=== PATIENT | male | born 1995 | race Caucasian/White ===

== ENCOUNTER 2017-01-19 01:09 | Emergency (ER) | payer OTHER ==
[~2017-01-19] VITALS: Ht 188 cm; Wt 127.0 kg
[~2017-01-19 01:09] MED LIST: CEPHALEXIN500 MG PO; NON-ASPIRIN EX500 M1 PO
[2017-01-19] MEDS ORDERED: HYDROXYZINE HCL25 MG PO (01:48)
== END 2017-01-19 02:00 | disposition home or self-care (01) ==
LOC: ED 01:09
DX: L55.0 Sunburn of first degree (principal)
CPT/HCPCS: 96372; 99283; J1200

== ENCOUNTER 2017-02-20 22:46 | Emergency (ER) | payer OTHER ==
[~2017-02-20] VITALS: Ht 188 cm; Wt 120.2 kg
[~2017-02-20 22:46] MED LIST changes: +HYDROXYZINE HCL25 MG PO
== END 2017-02-20 23:33 | disposition home or self-care (01) ==
LOC: ED 22:46
DX: M54.6 Pain in thoracic spine (principal); F17.200 Nicotine dependence, unspecified, uncomplicated; X50.1XXA Overexertion from prolonged static or awkward postures, initial encounter
CPT/HCPCS: 99282

== ENCOUNTER 2017-10-02 03:38 | Emergency (ER) | payer SELFPAY ==
[~2017-10-02] VITALS: Ht 188 cm; Wt 127.0 kg
[2017-10-02] MEDS ORDERED: DICLOFENAC SODI75 MG PO (04:22)
[2017-10-02] MEDS ORDERED: CYCLOBENZAPRINE10 MG PO (04:22)
== END 2017-10-02 04:37 | disposition home or self-care (01) ==
LOC: ED 03:38
DX: M54.5 Low back pain (principal); Z87.891 Personal history of nicotine dependence
CPT/HCPCS: 99283

== ENCOUNTER 2017-12-24 07:57 | Emergency (ER) | payer SELFPAY ==
[~2017-12-24] VITALS: Ht 188 cm; Wt 127.0 kg
[~2017-12-24 07:57] MED LIST changes: +CYCLOBENZAPRINE10 MG PO; +DICLOFENAC SODI75 MG PO
== END 2017-12-24 08:11 | disposition home or self-care (01) ==
LOC: ED 07:57
DX: M79.661 Pain in right lower leg (principal)

== ENCOUNTER 2018-10-30 16:39 | Emergency (ER) | payer SELFPAY ==
[~2018-10-30] VITALS: Ht 188 cm; Wt 127.0 kg
--- OUTSIDE RECORDS SUMMARY | ~2018-10-30 | XMS | Clinical Summary ---
Demographics + + + | Address | [address] | | | [place] [address] | + + + | Home Phone | | + + + | Preferred Language | Unknown | + + + | Marital Status | Single | + + + | Scientology Affiliation | 1013 | + + + | Race | Unknown | + + + | Ethnic Group | Unknown | + + + Author + + + | Author | [facility] | | | and [place] | + + + | Organization | [facility] | | | and [place] | + + + | Address | Unknown | + + + | Phone | Unavailable | + + + Support + + +---------+ + | Name | Relationship | Address | Phone | + + +---------+ + | None,Provided | ECON | Unknown | | + + +---------+ + Care Team Providers + +------+ + | Care Electrical Timing Device Calibrator Name | Role | Phone | + +------+ + | No, Physician | PP | Unavailable | + +------+ + Allergies [...] on file | | + + + + + + + | Job Start Date | Occupation | Industry | + + + + | Not on file | Not on file | Not on file | + + + + + + + + | Travel History | Travel Start | Travel End | + + + + + + | No recent travel history available. | + + Last Filed Vital Signs + + + + | Vital Sign | Reading | Time Taken | + + + + | Blood Pressure | 150/92 | 01/02/20181813 PDT | + + + + | Pulse | 76 | 01/02/20181813 PDT | + + + + | Temperature | 36.5 C (97.7 F) | 01/02/20181813 PDT | + + + + | Respiratory Rate | 19 | 01/02/20181813 PDT | + + + + | Oxygen Saturation | 99% | 01/02/20181813 PDT | + + + + | Inhaled Oxygen | - | - | | Concentration | | | + + + + | Weight | 131 kg (288 lb 12.8 | 01/02/2018 1814 PDT | | | oz) | | + + + + | Height | 188 cm (6' 2") | 01/01/2018 110 PDT | + + + + | Body Mass Index | 37.08 | 01/01/20181105 PDT | + + + + Plan of Treatment + + + + + | Health Maintenance | Due Date | Last Done | Comments | + + + + + | Vaccine: | | | | | Dtap/Tdap/Td (1 - | 4 | | | | Tdap) | | | | + + + + + | Vaccine: Influenza | | | | | (Season Ended) | 9 | | | + + + + + Results Not on filefrom Last 3 Months Insurance + +--------+ +--------+ +---------+--------+ | Payer | Benefi | Subscriber | Effect | Phone | Address | Type | | | t Plan | ID | steve | | | | | | / | | Dates | | | | | | Group | | | | | | + +--------+ +--------+ +---------+--------+ | WORKERS COMPENSATION | WORKME | [id number] | | | | Indemn | | | NS | | 013-Pr | | | ity | | | COMP | | esent | | | | | | OTHER | | | | | | | | WC | | | | | | + +--------+ +--------+ +---------+--------+ | GEHA | GEHA | [id number] | | [phone] | | PPO | | | PHCS | | 018-Pr | 6 | | | | | | | esent | | | | + +--------+ +--------+ +---------+--------+ + +--------+ +--------+ + + | Guarantor Name | Accoun | Relation to | Date | Phone | Billing Address | | | t Type | Patient | of | | | | | | | | | | + +--------+ +--------+ + + | Jozef Paredes | Person | Self [birth year] | [address] | | | al/Fam | | 1995 | [phone] | [place] [address] | | | mirna | | | 5 (Home) | | + +--------+ +--------+ + + | 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 For more information, please contact:[facility] [place] [address]
--- OUTSIDE RECORDS SUMMARY | ~2018-10-30 | XMS | Clinical Summary ---
Demographics + + + | Address | [address] | | | [place] [address] | + + + | Home Phone | | + + + | Preferred Language | Unknown | + + + | Marital Status | Single | + + + | Jew Affiliation | 1013 | + + + | Race | Unknown | + + + | Ethnic Group | Unknown | + + + Author + + + | Author | [facility] | | | and [place] | + + + | Organization | [facility] | | | and [place] | [...] Team Providers + +------+ + | Care Front Desk Receptionist Name | Role | Phone | + [...] +---------+--------+ | WORKERS COMPENSATION | WORKME | [id number] | | | | Indemn | | | NS | | 013-Pr | | | ity | | | COMP | | esent | | | | | | OTHER | | | | | | | | WC | | | | | | + +--------+ +--------+ +---------+--------+ | GEHA | GEHA | [id number] | | [phone] | | PPO | [...] | 1995 | [phone] | [place] [address] | | | mirna | | | 5 (Home) | | + +--------+ +--------+ + + | 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 For more information, please contact:[facility] [place] [address]
[2018-10-30] MEDS ORDERED: NORCO 5-325 TA1 EACH PO (17:57)
== END 2018-10-30 18:18 | disposition home or self-care (01) ==
LOC: ED 16:39
PROC: 2W3DX1Z Immobilization of Left Lower Arm using Splint (ICD-10-PCS; principal; 2018-10-30)
DX: S93.402A Sprain of unspecified ligament of left ankle, initial encounter (principal); S63.502A Unspecified sprain of left wrist, initial encounter; S86.912A Strain of unspecified muscle(s) and tendon(s) at lower leg level, left leg, initial encounter; W10.8XXA Fall (on) (from) other stairs and steps, initial encounter
CPT/HCPCS: 29125; 73110; 73590; 73610; 99283-25

== ENCOUNTER 2019-10-18 05:28 | Emergency (ER) | payer OTHER ==
[~2019-10-18] VITALS: Ht 188 cm; Wt 136.1 kg
[~2019-10-18 05:28] MED LIST changes: +NORCO 5-325 TA1 EACH PO
[2019-10-18] MEDS ORDERED: CYCLOBENZAPRINE10 MG PO (05:50)
[2019-10-18] MEDS ORDERED: IBUPROFEN600 MG PO (05:51)
[2019-10-18] MEDS ORDERED: ACETAMINOPHEN325 M1 PO (05:51)
== END 2019-10-18 07:06 | disposition home or self-care (01) ==
LOC: ED 05:28
DX: R19.7 Diarrhea, unspecified (principal)
CPT/HCPCS: 80053; 81001; 83690; 85025; 87177; 87209; 87493; 96360; 99284-25; J7030

== ENCOUNTER 2020-01-22 22:27 | Emergency (ER) | payer OTHER ==
[~2020-01-22] VITALS: Ht 188 cm; Wt 133.8 kg
--- OUTSIDE RECORDS SUMMARY | ~2020-01-22 | XMS | Encounter Summary ---
Demographics + + + | Address | [address] | | | [place] [address] | + + + | Home Phone | | + + + | Preferred Language | Unknown | + + + | Marital Status | Single | + + + | Islam Affiliation | 1013 | + + + | Race | Unknown | + + + | Ethnic Group | Unknown | + + + Author + + + | Author | [facility] | | | and [place] | + + + | Organization | [facility] | | | [...] Team Providers + +------+ + | Care Cook Short Order Name | Role | Phone | + [...] | 2018 | | HOSPITAL EMERGENCY | COMMUNITY NURSE [address] | knee, unspecified | | | | CENTER [address] | [place] | ligament, initial | | | | [place] | [address] | encounter (Primary | | | | [address] | | Dx) | | | | [phone] | | | +--------+ + + + [...] Care Everywhere.Strains and Spr ains, Self-Care for (Lebanese)documented in this encounter Medications at Time of [...] might be different fr om the original. [facility] Emergency Department Provider Note Name: Jozef Paredes [...] Knee Injury Method of Arrival: walk-in Treatment KOSHER BUTCHER (EMS): N/A Treatment KOSHER BUTCHER (Patient/Family): Cordova and Ibuprofen 600 mg TID HPI: History [...] reports being seen at an clinic in [facility] and started on Cordova and Ibuprofen. States these have helped but [...] PDTPt c/o's right knee injury last week. [facility] sent pt here "fo r MRI [...] R?MRN: | | | | | | [id number] | | | [id number] | | | ecurit | | | [...] | | | St. | | | [place] | | | y H. | | [...] | | | St. | | | [place] | | | y H. | | [...] | | | St. | | | [place] | | | y | | | [...]
--- OUTSIDE RECORDS SUMMARY | ~2020-01-22 | XMS | Clinical Summary ---
Demographics + + + | Address | [address] | | | [place] [address] | + + + | Home Phone | | + + + | Preferred Language | Unknown | + + + | Marital Status | Single | + + + | Sikhism Affiliation | 1013 | + + + | Race | Unknown | + + + | Ethnic Group | Unknown | + + + Author + + + | Author | [facility] | | | and [place] | + + + | Organization | [facility] | | | [...] Team Providers + +------+ + | Care Physical Instructor Name | Role | Phone | + +------+ + | No, Physician | PCP | Unavailable | + +------+ + Allergies No Known Allergies Medications + + + +---------+------+------+-------+ | Medication | Sig | Dispensed | Refills | Star | End | Statu | | | | | | t | Date | s | | | | | | Date | | | + + + +---------+------+------+-------+ | ibuprofen | Take 600 mg by mouth | | 0 | | | Activ | | (ADVIL,MOTRIN) 600 | every 6 hours as | | | | | e | | MG tablet | needed for Pain. | | | | | | + + + +---------+------+------+-------+ | | Take 1 tablet by | | 0 | | | Activ | | HYDROcodone-acetamin | mouth every 6 hours | | | | | e | | ophen (NORCO) 5-325 | as needed for Pain. | | | | | | | mg per tablet | | | | | | | + + + +---------+------+------+-------+ Active Problems No known active problems Social History + +-------+ +--------+------+ | Tobacco [...] on file | | + + + Last Filed Vital Signs + + + + + | Vital Sign | Reading | Time Taken | Comments | + + + + + | Blood Pressure | 150/92 | 01/02/2018 6:14 PM | | | | | PDT | | + + + + + | Pulse | 76 | 01/02/2018 6:14 PM | | | | | PDT | | + + + + + | Temperature | 36.5 C (97.7 F) | 01/02/2018 6:14 PM | | | | | PDT | | + + + + + | Respiratory Rate | 19 | 01/02/2018 6:14 PM | | | | | PDT | | + + + + + | Oxygen Saturation | 99% | 01/02/2018 6:14 PM | | | | | PDT | | + + + + + | Inhaled Oxygen | - | - | | | Concentration | | | | + + + + + | Weight | 131 kg (288 lb 12.8 | 01/02/2018 6:14 PM | | | | oz) | PDT | | + + + + + | Height | 188 cm (6' 2") | 01/01/2018 11:06 AM | | | | | PDT | | + + + + + | Body Mass Index | 37.08 | 01/01/2018 11:06 AM | | | | | PDT | | + + + + + Plan of Treatment + + +-------+ + | Health Maintenance | Due Date | Last | Comments | | | | Done | | + + +-------+ + | Vaccine: | | | | | Dtap/Tdap/Td (1 - | 4 | | | | Tdap) | | | | + + +-------+ + | Vaccine: Influenza | | | | | (#1) | 0 | | | + + +-------+ + Results Not on filefrom Last 3 Months Insurance + +--------+ +--------+-------+---------+--------+ | Payer | Benefi | Subscriber | Effect | Phone | Address | Type | | | t Plan | ID | steve | | | | | | / | | Dates | | | | | | Group | | | | | | + +--------+ +--------+-------+---------+--------+ | WORKERS COMPENSATION | WORKME | [id number] | | | | Indemn | | | NS | | 013-Pr | | | ity | | | COMP | | esent | | | | | | OTHER | | | | | | | | WC | | | | | | + +--------+ +--------+-------+---------+--------+ + +--------+ +--------+ + + | Guarantor Name | Accoun | Relation to | Date | Phone | Billing Address | | | t Type | Patient | of | | | | | | | | | | + +--------+ +--------+ + + | 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
--- OUTSIDE RECORDS SUMMARY | ~2020-01-22 | XMS | Encounter Summary ---
Demographics + + + | Address | [address] | | | [place] [address] | + + + | Home Phone | | + + + | Preferred Language | Unknown | + + + | Marital Status | Single | + + + | Confucianist Affiliation | 1013 | + + + | Race | Unknown | + + + | Ethnic Group | Unknown | + + + Author + + + | Author | [facility] | | | and [place] | + + + | Organization | [facility] | | | [...] Team Providers + +------+ + | Care Drug Purchaser Name | Role | Phone | + +------+ + | No, Physician | PCP | Unavailable | + +------+ + Reason for Visit + + + | Reason | Comments | + + + | Back Pain | | + + + Encounter Details +--------+ + + + + | Date | Type | Department | Care Team | Description | +--------+ + + + + | 01/02/ | Emergency | [facility] | Yue Gregg, | Back muscle spasm | | 2018 | | HOSPITAL EMERGENCY | SHRIMP PICKER [address] | (Primary Dx) | | | | CENTER [address] | [address] [place] | | | | | [place] | [address] | | | | | [address] | | | | | | [phone] | | | +--------+ + + + [...] + + + + | Height | - | - | | + + + + + | Body Mass Index | 37.08 | 01/01/2018 11:06 AM | | | | | PDT | | + + + + + documented in this encounter Discharge Instructions Instructions Yue Gregg FNP - 01/02/2018Use Flexeril at night only. Follow up with a primary for evaluation of your back spasms. AttachmentsThe following attachments cannot be sent through Care Everywhere.Back Pain, Darwin blanc (Bermudian)documented in this encounter Medications at Time of [...] documented as of this encounter ED Notes Yue Gregg FNP - 01/02/2018 7:12 PM PDTFormatting of this note might be different fr om the original. [facility] Emergency Department Provider Note Name: Jozef Jeffries Paredes Date: 01/02/2018 : 1995 Room Number: ED01 PCP: No Physician on file Medical Decision Making This 22-year-old man who is in the [employer] comes in today complaining of severe back spasms. Of note he was here yesterday with complaints of knee pain. He walks in today hold ing his knee brace that he was given yesterday. He states the knee pain is gone because irma t has all gone to his back. He states he has had back pain on and off for the last 3 years and it was exacerbated by the workout he had to do during training today. He has no acute i njury. Patient is lying on the bed grimacing and moaning in pain. He was given 60 mg of To radol IM with complete relief of pain within about 20 minutes. He was given a go pack of Fl exeril 10 mg a total of 3 tablets and advised to take it only at night as needed. He is als o advised to follow-up with his primary care to get a complete evaluation of his back to det ermine what causes him to get muscle spasms. It is noted that he has been in [facility] frequently with complaints of knee and back pain. Patient is discharged in i mproved condition. Clinical Impression and Plan Final diagnoses: Back muscle spasm ED Prescriptions None Extended ED Note CC: Chief Complaint Patient presents with Back Pain Method of Arrival: wheelchair History obtained from: Patient HPI: Jozef Paredes is a 22 y.o. 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 Diagnostics and Procedures 60 mg of Toradol IM Review of Systems Review of Systems Constitutional: Negative. HENT: Negative. Respiratory: Negative. Cardiovascular: Negative. Gastrointestinal: Negative. Genitourinary: Negative. Musculoskeletal: Positive for back pain. Spasms in his low back. Skin: Negative. Neurological: Negative. Physical Exam Pulse: 76- Resp: 19- BP: (!) 150/92 - SpO2: 99 % - Temp: 36.5 C (97.7 F) Physical Exam Constitutional: He is oriented to person, place, and time. He appears well-developed and we ll-nourished. He appears distressed. Patient groaning and gritting his teeth on arrival. HENT: Head: Normocephalic. Eyes: Pupils are equal, round, and reactive to light. Neck: Normal range of motion. Cardiovascular: Normal rate. Pulmonary/Chest: Effort normal. No respiratory distress. Musculoskeletal: Normal range of motion. Neurological: He is alert and oriented to person, place, and time. Patient has normal gait and posture. Skin: Skin is warm and dry. Past Medical, Surgical, Social, and Family History History reviewed. No pertinent past medical history. History reviewed. No pertinent surgical history. Social History Substance Use Topics Smoking status: Former Smoker Smokeless tobacco: Never Used Alcohol use Not on file Current Discharge Medication List CONTINUE these medications which have NOT CHANGED Details HYDROcodone-acetaminophen (NORCO) 5-325 mg per tablet Take 1 tablet by mouth every 6 hours as needed for Pain. ibuprofen (ADVIL,MOTRIN) 600 MG tablet Take 600 mg by mouth every 6 hours as needed for Jayna n. BRY Petersen 01/02/181916 haul, Ying Le RN - 01/02/2018 7:02 PM PDTStates concern about if pain comes back in the night, requests m uscle relaxant. WIRE BENDER notified 7:0 9 PM PDTBrothertonBrenda RN - 01/02/2018 6:14 PM PDTPt c/o's low back pain-chronic. Pt c /o's "doing drill today and my back flared up" documented in this encounter Plan of Treatment + +------+--------+ + + | Name | Type | Priori | Associated Diagnoses | Date/Time | | | | ty | | | + +------+--------+ + + | ED INFORMATION | JULIETTE | Routin | | 01/02/2018 6:06 PM | | EXCHANGE | | e | | PDT | + +------+--------+ + + documented as of this encounter Procedures + +--------+ + + + | Procedure Name | Priori | Date/Time | Associated Diagnosis | Comments | | | ty | | | | + +--------+ + + + | ED INFORMATION | Routin | 01/02/2018 | | | | EXCHANGE | e | 6:06 PM | | | | | | PDT | | | + +--------+ + + + +---+--------+ | | | | | Proced | | | ure | | | Note - | | | Irwin, | | | Lab In | | | | | | Hlseve | | | n - | | | | | | 2017 | | | 6:07 | | | PM PDT | | | | | | [...] | | | FICATI | | | ON?/ | | | | | | 8 | | | 18:05? | | | CAMPBE | | | LL, | | | GABRIE | | | L | | | R?MRN: | | | | | | [id number] | | | [id number] | | | ecurit | | | [...] | | | in | | | JULEITTE | | | for | | | [...] | | | Jc | | | 16, | | | 2018 | | | [place] | | | [place] | | | [place] | | | [place] | | | [place] | | | Emerge | | | ncy | | | Emerge | | | ncy | | | Back | | | pain, | | | troubl | | | e | | | breath | | | ing | | | Jc | | | 15, | | | 2018 | | | [place] | | | [place] | | | [place] | | | [place] | | | [place] | | | Emerge | | | ncy | | | Emerge | | | ncy | | | Knee | | | injury | | | | | | Sprain | | | of | | | unspec | | | ified | | | site | | | of | | | right | | | knee, | | | initia | | | l | | | encoun | | | ter | | | Jc 7, | | | 2018 | | | [facility] | | | y H. | | [...] | | | [facility] | [facility] | [facility] | [facility] H[facility] | | [...] | | Hospit | | | al 2 | | | [facility] | | | y | | | Hospit | | | al 4 | | | Total | | | 6 | | | Note: | | | [...] + | Diagnosis | + + | Back muscle spasm - Primary Other symptoms referable to back | + + documented in this encounter Administered Medications + + + +-------+------+------+ | Medication Order | MAR | Action | Dose | Rate | Site | | | Action | Date | | | | + + + +-------+------+------+ | cyclobenzaprine (FLEXARIL) | Dispense | 01/03/20 | 10 mg | | | | tablet (ER Prepack) 10 mg 10 mg, | to Home | 18 7:10 | | | | | Oral, 3 TIMES DAILY PRN, Muscle | | PM PDT | | | | | spasms, Starting 01/02/18 at | | | | | | | 1900, Dispense for home use., | | | | | | + + + +-------+------+------+ +---+---+ | | | +---+---+ + +-------+ +-------+---+ + | ketorolac (TORADOL) injection | Given | 01/03/20 | 60 mg | | Ventrogl | | 60 mg 60 mg, Intramuscular, | | 18 6:39 | | | uteal-Ri | | ONCE, 01/02/18 at 1900, For 1 | | PM PDT | | | ght | | dose | | | | | | + +-------+ +-------+---+ + +---+---+ | | | +---+---+ documented in this encounter
--- OUTSIDE RECORDS SUMMARY | ~2020-01-22 | XMS | Encounter Summary ---
Demographics + + + | Address | [address] | | | [place] [address] | + + + | Home Phone | | + + + | Preferred Language | Unknown | + + + | Marital Status | Single | + + + | Spiritism Affiliation | 1013 | + + + | Race | Unknown | + + + | Ethnic Group | Unknown | + + + Author + + + | Author | [facility] | | | and [place] | + + + | Organization | [facility] | | | [...] Team Providers + +------+ + | Care Linoleum Layer Apprentice Name | Role | Phone | + +------+ + PCP | Unavailable | + +------+ + Encounter Details +--------+ + + + + | Date | Type | Department | Care Team | Description | +--------+ + + + + | 10/18/ | Hospital | [facility] | Luis Alberto Boss | | | 2017 | Encounter | HOSPITAL EMERGENCY | [address] | | | | | CENTER [address] | [address] | | | | | [address] [place] | [place] [address] | | | | | [address] | [phone] | | | | | [phone] | | | +--------+ + + + + Social History + +-------+ +--------+------+ | Tobacco Use | Types | Packs/Day | Years | Date | | | | | Used | | + +-------+ +--------+------+ | Never Assessed | | | | | + +-------+ +--------+------+ + + + | Sex Assigned at | Date Recorded | | | | + + + | Not on file | | + + + documented as of this encounter Plan of Treatment Not on filedocumented as of this encounter Visit Diagnoses Not on filedocumented in this encounter"
[~2020-01-22 22:27] MED LIST changes: +ACETAMINOPHEN325 M1 PO; +IBUPROFEN600 MG PO
== END 2020-01-23 00:06 | disposition home or self-care (01) ==
LOC: ED 22:27
DX: R51 Headache (principal); Z79.899 Other long term (current) drug therapy
CPT/HCPCS: 96374; 96375; 99283-25; J1200; J1885; J2765; J7030

== ENCOUNTER 2020-03-10 11:29 | Emergency (ER) | payer OTHER ==
[~2020-03-10] VITALS: Ht 188 cm; Wt 136.1 kg
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
--- OUTSIDE RECORDS SUMMARY | ~2020-03-10 | XMS | Clinical Summary ---
Demographics + + + | Address | [address] | | | [place] [address] | + + + | Home Phone | | + + + | Preferred Language | Unknown | + + + | Marital Status | Single | + + + | Congregational Affiliation | 1013 | + + + | Race | White | + + + | Ethnic Group | Not or | + + + Author + + + | Author | [facility] | | | and [place] | + + + | Organization | [facility] | | | and [place] [...] Team Providers + +------+ + | Care Electrical Sign Wirer Helper Name | Role | Phone | + [...] +--------+-------+---------+--------+ | WORKERS COMPENSATION | WORKME | [id number] | | | | Indemn | | [...] Comp | | 1994 | [id number] | [place] [address] | | | | | | 5 (Home) | | + +--------+ +--------+ + + | Jozef Paredes | Person | Self | [birth year] | [address] | | | [address]Fam | | 1994 [address] | | | mirna | | | 5 (Home) | [place], [place] | | | | | | | [address] | + +--------+ +--------+ + + Advance Directives + + + + + | Type | Date Recorded | Patient | Explanation | | | | Director Information | | + + + + + | Power of | | | | | Manager Ccu | | | | + + + + + | Advance | 01/01/2018 11:34 | | | | Directive | AM | | | + + + + +
--- OUTSIDE RECORDS SUMMARY | ~2020-03-10 | XMS | Encounter Summary ---
Demographics + + + | Address | [address] | | | [place] [address] | + + + | Home Phone | | + + + | Preferred Language | Unknown | + + + | Marital Status | Single | + + + | Shinto Affiliation | 1013 | + + + | Race | White | + + + | Ethnic Group | Not or | + + + Author + + + | Author | [facility] | | | and [place] | + + + | Organization | [facility] | | | and [place] | [...] Team Providers + +------+ + | Care Terrazzo Layer Helper Name | Role | Phone | [...] + | 01/02/ | Emergency | [facility] | Yue Gregg, | Back muscle spasm | | 2018 | | HOSPITAL EMERGENCY | 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 Follow up with a primary for evaluation of your back spasms. AttachmentsThe following attachments cannot be sent through Care Everywhere.Back Pain, Darwin blanc (Sinhala)documented in this encounter Medications at Time of [...] might be different fr om the original. 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 Diagnostics and Procedures 60 mg of [...] in the night, requests m uscle relaxant. RANGE EXAMINER notified 7:0 9 PM PDTBrothertonBrenda RN - [...] R?MRN: | | | | | | [id number] | | | [id number] | | | ecurit | | | [...] | | | St. | | | [place] | | | y H. | | [...] | | | St. | | | [place] | | | y H. | | [...] | | | St. | | | [place] | | | y | | | [...] | | | ? | | | 2017 | | | [facility] | | | [...]
--- OUTSIDE RECORDS SUMMARY | ~2020-03-10 | XMS | Encounter Summary ---
Demographics + + + | Address | [address] | | | [place] [address] | + + + | Home Phone | | + + + | Preferred Language | Unknown | + + + | Marital Status | Single | + + + | Hindu Affiliation | 1013 | + + + | Race | White | + + + | Ethnic Group | Not or | + + + Author + + + | Author | [facility] | | | and [place] | + + + | Organization | [facility] | | | and [place] | [...] Team Providers + +------+ + | Care Dray Driver Name | Role | Phone | + [...] | [address] [place] | [place] [address] | | | | | [address] | [phone] | | | | | [phone] | | | +--------+ + + + [...]
== END 2020-03-10 12:18 | disposition home or self-care (01) ==
LOC: ED 11:29
DX: M79.672 Pain in left foot (principal)

== ENCOUNTER 2021-03-26 18:33 | Emergency (ER) | payer OTHER ==
[~2021-03-26] VITALS: Ht 188 cm; Wt 127.9 kg
[2021-03-26] MEDS ORDERED: CLINDAMYCIN HC300 MG PO (20:14)
--- NOTE | 2021-03-27 13:24 | EKG ---
[facility] [address] [facility] [place], [place] [address] Signed Sinus tachycardia Inferior infarct , age undetermined Abnormal ECG No previous ECGs available Confirmed by LAKIA MCQUEEN MD ([id number]) on 03/27/2021 1:24:18 PM Electronically Signed By: LAKIA MCQUEEN MD 03/27/21 1324 PATIENT NAME: MANPREET MEDINA Electrocardiogram DATE OF : [birth year] PHYSICIAN: LAKIA MCQUEEN MD REPORT #: [id number] REPORT IS CONFIDENTIAL AND NOT TO BE RELEASED WITHOUT AUTHORIZATION
== END 2021-03-26 21:52 | disposition home or self-care (01) ==
LOC: ED 18:33
DX: U07.1 COVID-19 (principal)
CPT/HCPCS: 71045; 93005; 93010; 99284-25; C9803; U0003

== ENCOUNTER 2021-05-17 19:59 | Emergency (ER) | payer OTHER ==
[~2021-05-17] VITALS: Ht 188 cm; Wt 131.0 kg
[~2021-05-17 19:59] MED LIST changes: +CLINDAMYCIN HC300 MG PO
[2021-05-17] MEDS ORDERED: MAGNESIUM100 MG PO (21:28)
[2021-05-17] MEDS ORDERED: CYCLOBENZAPRINE10 MG PO (21:28)
[2021-05-17] MEDS ORDERED: IMITREX25 MG PO (21:29)
== END 2021-05-18 00:15 | disposition home or self-care (01) ==
LOC: ED 19:59
DX: S83.91XA Sprain of unspecified site of right knee, initial encounter (principal); X50.1XXA Overexertion from prolonged static or awkward postures, initial encounter; Z79.899 Other long term (current) drug therapy
CPT/HCPCS: 73560; 99283-25

== ENCOUNTER 2021-10-15 07:14 | Emergency (ER) | payer OTHER ==
[~2021-10-15] VITALS: Ht 188 cm; Wt 131.0 kg
[~2021-10-15 07:14] MED LIST changes: +IMITREX25 MG PO; +MAGNESIUM100 MG PO
--- OUTSIDE RECORDS SUMMARY | 2021-10-15 07:16 | XMS ---
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 Luiz has no Care Guidelines for this patient. Mikki VISIT COUNT (12 MO.) 3 [facility] TOTAL 3 NOTE: Visits indicate total known visits. 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
[2021-10-15] MEDS ORDERED: ONDANSETRON ODT4 MG PO (10:48)
== END 2021-10-15 11:05 | disposition home or self-care (01) ==
LOC: ED 07:14
DX: R19.7 Diarrhea, unspecified (principal); Z79.899 Other long term (current) drug therapy
CPT/HCPCS: 36415; 80053; 85025; 96374; 99284-25; J7030

== ENCOUNTER 2021-11-18 13:59 | Emergency (ER) | payer OTHER ==
[~2021-11-18] VITALS: Ht 188 cm; Wt 115.1 kg
[~2021-11-18 13:59] MED LIST changes: +ONDANSETRON ODT4 MG PO
== END 2021-11-18 15:12 | disposition home or self-care (01) ==
LOC: ED 13:59
DX: S46.912A Strain of unspecified muscle, fascia and tendon at shoulder and upper arm level, left arm, initial encounter (principal); X58.XXXA Exposure to other specified factors, initial encounter; Y99.0 Civilian activity done for income or pay; Z79.899 Other long term (current) drug therapy
CPT/HCPCS: 99283

== ENCOUNTER 2021-11-23 16:05 | Emergency (ER) | payer OTHER ==
[~2021-11-23] VITALS: Ht 188 cm; Wt 115.1 kg
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
== END 2021-11-23 17:25 | disposition home or self-care (01) ==
LOC: ED 16:05
DX: S43.402A Unspecified sprain of left shoulder joint, initial encounter (principal); S44.92XA Injury of unspecified nerve at shoulder and upper arm level, left arm, initial encounter; Z79.899 Other long term (current) drug therapy; X58.XXXA Exposure to other specified factors, initial encounter; Y99.0 Civilian activity done for income or pay
CPT/HCPCS: 73030; 99283-25

== ENCOUNTER 2024-07-06 08:10 | Emergency (ER) | payer OTHER ==
[~2024-07-06] VITALS: Ht 188 cm; Wt 122.0 kg
[2024-07-06] MEDS ORDERED: QSYMIA 3.75 MG1 EACH PO (08:23)
[2024-07-06] MEDS ORDERED: HYDROmorphone HCL 1 MG/ML SYR IV PRN (08:30)
[2024-07-06 08:31] LABS: BASOPHILS 0.4 % (0-2); EOSINOPHILS 1.1 % (0-6); HEMATOCRIT 39.1 % (35.0-50.0); HEMOGLOBIN 13.4 g/dL (12.0-18.0); LYMPHOCYTES 28.9 % (24-44); MCH 28.7 (27-36); MCHC 34.1 g/dl (30-36); MCV 84.1 fl (81-99); MONOCYTES 8.7 % (0-12); NEUTROPHILS 60.9 % (39-80); PLATELET COUNT 352 K/uL (140-440); RBC 4.66 M/ul (4.3-5.7); RDW 13.3 (10.5-15.0)
[2024-07-06 08:42] LABS: ALBUMIN 3.8 g/dL (3.4-5.0); ALBUMIN/GLOBULIN RATIO 1.06 (1.1-2.4); ANION GAP 18.6 (7-21); BILIRUBIN, TOTAL 0.4 ng/dL (0.2-1.0); BUN/CREATININE RATIO 26.02 (6.0-28.6); CALCIUM 8.3 mg/dL (8.5-10.1); CREATININE, SERUM 0.73 mg/dL (0.70-1.30); POTASSIUM 3.6 mmol/L (3.5-5.1); PROTEIN, TOTAL 7.4 g/dL (6.4-8.2)
[2024-07-06] MEDS ORDERED: ondansetron HCL 4 MG/2 ML VIAL IV ONE (08:45)
[2024-07-06] MEDS ORDERED: HYDROCODON-ACE1 EA11 PO (09:30)
[2024-07-06] MEDS ORDERED: KETOROLAC TROMETHAMINE 30 MG/ML VIAL IV ONE (09:30)
[2024-07-06] MEDS ORDERED: HYDROCODONE/ACETA 5/325 TAB PO ONE (09:30)
[2024-07-06 10:40] VITALS: BP 107/44
== END 2024-07-06 10:40 | disposition home or self-care (01) ==
LOC: ED 08:10
PROVIDERS: Emergency Medicine
DX: S33.5XXA Sprain of ligaments of lumbar spine, initial encounter (principal); S13.9XXA Sprain of joints and ligaments of unspecified parts of neck, initial encounter; V89.2XXA Person injured in unspecified motor-vehicle accident, traffic, initial encounter; Y92.411 Interstate highway as the place of occurrence of the external cause; Z79.899 Other long term (current) drug therapy
CPT/HCPCS: 36415; 72125; 72128; 72131; 80053; 85025; 96374; 96375; 99284-25; J1171; J1885; J2405